=== PATIENT | male | born 1960 | race African-American/Black ===

== ENCOUNTER 2024-06-28 16:00 | Inpatient (IN) | payer OTHER ==
[~2024-06-28 16:00] MED LIST: Iopamidol-370 76% 500 ML MDV (1 ML CHARGE) ONE
[2024-06-28 18:35] LABS: #Basophils Less than 0.03 10x3/uL (0.0-0.2); %Basophils 0.2 % (0.0-1.0); %Eosinophils 0.7 % (0.0-10.0); %Lymphocytes 10.6 % (21.0-51.0); %Monocytes 9.2 % (0.0-10.0); %Neutrophils 78.7 % (42.0-75.0); Hematocrit 24.1 % (42.0-52.0); Hemoglobin 7.6 g/dL (14.0-18.0); Mean Corpuscular HGB CONC 31.5 g/dL (32.0-36.0); Mean Corpuscular Hemoglobin 24.1 pg (27.0-31.0); Mean Corpuscular Volume 76.3 fL (78.0-98.0); Mean Platelet Volume 7.7 fL (7.4-10.4); Platelet Count 456 10x3/uL (130-400); RBC Distribution Width 16.5 % (11.5-14.5); Red Blood Cell (RBC) Count 3.16 mill/uL (4.70-6.10)
[2024-06-28 18:51] LABS: Anion Gap 11 mmol/L (10-20); BUN (Urea Nitrogen) 9 mg/dL (8.4-25.7); Calc. Creatinine Clearance 0 mL/min (70-130); Calcium 8.2 mg/dL (7.8-10.44); Carbon Dioxide 22 mmol/L (23-31); Chloride 94 mmol/L (98-107); Estimated GFR 107; Glucose 108 mg/dL (80-115); Potassium 4.3 mmol/L (3.5-5.1); Sodium 123 mmol/L (136-145)
[2024-06-28] MEDS ORDERED: Morphine 4 MG/ML VIAL ONE (19:18)
[2024-06-28 19:47] LABS: ALT (SGPT) 39 U/L (Less than 45); AST (SGOT) 40 U/L (11-34); Albumin 2.3 g/dL (3.1-4.5); Alkaline Phosphatase 118 U/L (40-110); Anion Gap 11 mmol/L (10-20); BUN (Urea Nitrogen) 8 mg/dL (8.4-25.7); Bilirubin, Total 0.2 mg/dL (0.3-1.2); Calc. Creatinine Clearance 0 mL/min (70-130); Calcium 8.4 mg/dL (7.8-10.44); Carbon Dioxide 22 mmol/L (23-31); Chloride 94 mmol/L (98-107); Estimated GFR 106; Globulin 5.1 g/dL (2.4-3.5); Glucose 106 mg/dL (80-115); Lipase 9 U/L (8-78); Potassium 4.2 mmol/L (3.5-5.1); Protein, Total 7.4 g/dL (5.8-8.1); Sodium 123 mmol/L (136-145)
[2024-06-28 19:52] LABS: Troponin I 0.014 ng/mL (< 0.028)
[2024-06-28 21:17] LABS: Bacteria/HPF None Seen HPF (None Seen); Bilirubin Negative (Negative); Blood, Urine Negative (Negative); CAUTI Indications for Culture Pelvic or flank pain; Clarity Turbid (Clear); Glucose, Urine (Dipstick) Normal (Negative); Ketone, Urine Negative (Negative); Leukocyte 500 Leu/uL (Negative); Nitrite 1+ (Negative); Protein, Urine (Dipstick) Negative (Neg-Trace); RBC/HPF 0-3 HPF (0-3); Specific Gravity, Urine 1.021 (1.002-1.036); Squamous Epithelial 0-3 HPF (0-3); Urobilinogen Normal mg/dL (Less than 2); WBC/HPF 21-50 HPF (0-3)
[2024-06-28 21:21] LABS: Urine Culture Reflex Yes Yes
[2024-06-28] MEDS ORDERED: Ondansetron PF 4 MG/2 ML Vial IVP PRN (22:13)
[2024-06-29] MEDS: Sodium Chloride 0.9% 1,000 ML IV SCH (00:57)
[2024-06-29] MEDS: cefTRIAXone\\ROCEPHIN 1 GM in Sodium Chloride 0.9% 100 ML IVPB SCH (00:57)
[2024-06-29 00:58] VITALS: BMI 23.5
[2024-06-29] MEDS: Acetaminophen/Codeine 30-300mg Tablet PO PRN (01:23)
[2024-06-29 05:13] LABS: #Basophils 0.03 10x3/uL (0.0-0.2); %Basophils 0.3 % (0.0-1.0); %Eosinophils 0.8 % (0.0-10.0); %Lymphocytes 11.4 % (21.0-51.0); %Monocytes 11.6 % (0.0-10.0); %Neutrophils 75.2 % (42.0-75.0); Hematocrit 26.6 % (42.0-52.0); Hemoglobin 8.4 g/dL (14.0-18.0); Mean Corpuscular HGB CONC 31.6 g/dL (32.0-36.0); Mean Corpuscular Volume 79.2 fL (78.0-98.0); Platelet Count 471 10x3/uL (130-400); RBC Distribution Width 16.6 % (11.5-14.5); Red Blood Cell (RBC) Count 3.36 mill/uL (4.70-6.10)
[2024-06-29 05:35] LABS: Anion Gap 12 mmol/L (10-20); BUN (Urea Nitrogen) 9 mg/dL (8.4-25.7); Calc. Creatinine Clearance 126 mL/min (70-130); Calcium 8.2 mg/dL (7.8-10.44); Carbon Dioxide 22 mmol/L (23-31); Chloride 97 mmol/L (98-107); Estimated GFR 108; Glucose 80 mg/dL (80-115); Potassium 4.2 mmol/L (3.5-5.1); Sodium 127 mmol/L (136-145)
[2024-06-29 06:51] LABS: Hemoglobin 8.5 g/dL (14.0-18.0)
[2024-06-29 08:45] VITALS: BMI 23.5
[2024-06-29] MEDS: Famotidine/PF 20 mg/2ml Vial SLOW IVP SCH (09:46)
[2024-06-29] MEDS: Pantoprazole 40 MG VIAL IVP SCH (09:47)
[2024-06-29] MEDS ORDERED: Non-Formulary Item 1 EACH (Calcium Carbonate [Calcium] 500 MG Tab.Chew) PO SCH (15:00)
[2024-06-29] MEDS: Calcium Carbonate 500 MG ChewTAB PO SCH (16:06)
[2024-06-29] MEDS: GoLYTELY 4,000 ml Bottle PO SCH (18:17)
[2024-06-29] MEDS: carBAMazepine 200 MG TAB PO SCH (20:30)
[2024-06-29] MEDS: Terazosin HCl 5 MG CAP PO SCH (20:31)
[2024-06-29] MEDS: Atorvastatin Calcium 40 MG TAB PO SCH (20:31)
[2024-06-29] MEDS: Lisinopril 10 MG TAB PO SCH (20:31)
[2024-06-29] MEDS: Haloperidol 1 MG TAB PO SCH (20:31)
[2024-06-29] MEDS: Pantoprazole 40 MG DR.TAB PO SCH (20:31)
[2024-06-29] MEDS: diphenhydrAMINE 50 MG CAP PO SCH (20:32)
[2024-06-29] MEDS ORDERED: Non-Formulary Item 1 EACH (Atorvastatin Calcium [Atorvastatin Calcium] 80 MG Tablet) PO SCH (21:00)
[2024-06-29] MEDS ORDERED: Non-Formulary Item 1 EACH (Omeprazole [Omeprazole] 20 MG Capsule.Dr) PO SCH (21:00)
[2024-06-29 22:43] LABS: Hemoglobin 8.7 g/dL (14.0-18.0)
[2024-06-29 23:48] LABS: Hemoglobin 8.5 g/dL (14.0-18.0)
[2024-06-30 07:43] LABS: HIV (1/2) Antibody/Antigen NONREACTIVE (NonReactive); HIV 1/2 INDEX 0.05 S/CO (<1.00)
[2024-06-30] MEDS: Venlafaxine 75 MG TAB PO SCH (09:12)
[2024-06-30] MEDS: Fleet Saline Enema 133 ML BOT PR SCH (10:39)
[2024-06-30] MEDS ORDERED: PROPOFOL 20 ML ONE (14:34)
[2024-06-30] MEDS ORDERED: Lidocaine 2% PF 5 ML VIAL ONE (14:35)
[2024-06-30] MEDS ORDERED: PROPOFOL 40 ML ONE (14:38)
[2024-07-01 07:24] LABS: #Basophils Less than 0.03 10x3/uL (0.0-0.2); %Basophils 0.2 % (0.0-1.0); %Eosinophils 1.2 % (0.0-10.0); %Lymphocytes 9.8 % (21.0-51.0); %Monocytes 9.2 % (0.0-10.0); Hematocrit 25.7 % (42.0-52.0); Hemoglobin 8.2 g/dL (14.0-18.0); Mean Corpuscular HGB CONC 31.9 g/dL (32.0-36.0); Mean Corpuscular Hemoglobin 25.2 pg (27.0-31.0); Mean Corpuscular Volume 78.8 fL (78.0-98.0); Platelet Count 429 10x3/uL (130-400); RBC Distribution Width 17.4 % (11.5-14.5); Red Blood Cell (RBC) Count 3.26 mill/uL (4.70-6.10)
[2024-07-01 07:50] LABS: ALT (SGPT) 42 U/L (Less than 45); AST (SGOT) 49 U/L (11-34); Albumin 1.9 g/dL (3.1-4.5); Alkaline Phosphatase 132 U/L (40-110); Anion Gap 10 mmol/L (10-20); BUN (Urea Nitrogen) 5 mg/dL (8.4-25.7); Bilirubin, Total 0.1 mg/dL (0.3-1.2); Calc. Creatinine Clearance 116 mL/min (70-130); Calcium 7.7 mg/dL (7.8-10.44); Carbon Dioxide 23 mmol/L (23-31); Chloride 100 mmol/L (98-107); Estimated GFR 106; Globulin 4.4 g/dL (2.4-3.5); Glucose 132 mg/dL (80-115); Protein, Total 6.3 g/dL (5.8-8.1); Sodium 130 mmol/L (136-145)
[2024-07-01] MEDS: Potassium Chloride 20 MEQ TAB PO SCH ×2 (13:29→17:36)
[2024-07-01] MEDS: Ciprofloxacin 500 MG TAB PO SCH (17:37)
[2024-07-02] MEDS: Potassium Chloride 20 MEQ TAB PO SCH (08:07)
[2024-07-04 05:51] LABS: #Basophils Less than 0.03 10x3/uL (0.0-0.2); %Basophils 0.2 % (0.0-1.0); %Eosinophils 2.5 % (0.0-10.0); %Lymphocytes 9.6 % (21.0-51.0); %Monocytes 10.4 % (0.0-10.0); %Neutrophils 76.6 % (42.0-75.0); Hematocrit 27.2 % (42.0-52.0); Hemoglobin 8.6 g/dL (14.0-18.0); Mean Corpuscular HGB CONC 31.6 g/dL (32.0-36.0); Mean Corpuscular Hemoglobin 24.7 pg (27.0-31.0); Mean Corpuscular Volume 78.2 fL (78.0-98.0); Mean Platelet Volume 7.9 fL (7.4-10.4); Platelet Count 443 10x3/uL (130-400); RBC Distribution Width 18.1 % (11.5-14.5); Red Blood Cell (RBC) Count 3.48 mill/uL (4.70-6.10)
[2024-07-04 06:09] LABS: Anion Gap 12 mmol/L (10-20); BUN (Urea Nitrogen) 8 mg/dL (8.4-25.7); Calc. Creatinine Clearance 124 mL/min (70-130); Calcium 8.3 mg/dL (7.8-10.44); Carbon Dioxide 21 mmol/L (23-31); Chloride 95 mmol/L (98-107); Estimated GFR 108; Glucose 100 mg/dL (80-115); Potassium 4.7 mmol/L (3.5-5.1); Sodium 123 mmol/L (136-145)
[2024-07-04 07:47] VITALS: TEMP 97.4
[2024-07-04] MEDS: Sodium Chloride 1 GM TAB PO SCH (08:12)
[2024-07-04 11:14] VITALS: BP 113/72
== END 2024-07-04 14:23 | DRG 375 ==
LOC: ERS 16:00 → T4-A 06-29 00:24 → EEVIPCON 06-29 00:24
PROVIDERS: ADMIT Hospitalist; ATTEND Hospitalist
PROC: 0DBP8ZX Excision of Rectum, Via Natural or Artificial Opening Endoscopic, Diagnostic (ICD-10-PCS; principal; 2024-06-29)
PROC: 30233N1 Transfusion of Nonautologous Red Blood Cells into Peripheral Vein, Percutaneous Approach (ICD-10-PCS; 2024-06-29)
DX: C20 Malignant neoplasm of rectum (principal); D62 Acute posthemorrhagic anemia; E87.1 Hypo-osmolality and hyponatremia; N39.0 Urinary tract infection, site not specified; E87.6 Hypokalemia; B96.20 Unspecified Escherichia coli [E. coli] as the cause of diseases classified elsewhere; K80.50 Calculus of bile duct without cholangitis or cholecystitis without obstruction; I10 Essential (primary) hypertension; K64.4 Residual hemorrhoidal skin tags; F25.1 Schizoaffective disorder, depressive type; Z79.82 Long term (current) use of aspirin; Z79.899 Other long term (current) drug therapy
CPT/HCPCS: 36415; 36430; 71045; 74177; 80048; 80053; 81001; 82274; 83605; 83690; 83880; 84484; 85025; 86850; 86900; 86901; 87040; 87077; 87086; 87186; 87389; 88305; 88342; 93005; 96374; J0696; J2270; J2470; J2704; J7030; P9016; Q9967